=== PATIENT | female | born 1965 ===

== ENCOUNTER → 2021-02-05 | Outpatient (CLI) | payer OTHER | LOC: COL.RAD 08:01 | DX: S83.511A Sprain of anterior cruciate ligament of right knee, initial encounter (principal); S83.411A Sprain of medial collateral ligament of right knee, initial encounter ==

== ENCOUNTER 2021-09-22 15:13 | Emergency (ER) | payer OTHER ==
[~2021-09-22] VITALS: Ht 175.3 cm; Wt 126.4 kg
[2021-09-22 15:26] VITALS: TEMP 98.2
[2021-09-22] MEDS ORDERED: CELEXA40 MG (17:23)
[2021-09-22] MEDS ORDERED: ESTRACE0.5 MG PO (17:23)
[2021-09-22 18:21] VITALS: BP 163/73; PULSE 72
== END 2021-09-22 18:23 | disposition home or self-care (01) ==
LOC: COL.ER 15:13
DX: S82.51XA Displaced fracture of medial malleolus of right tibia, initial encounter for closed fracture (principal); S82.831A Other fracture of upper and lower end of right fibula, initial encounter for closed fracture; W01.0XXA Fall on same level from slipping, tripping and stumbling without subsequent striking against object, initial encounter